=== PATIENT | female | born 1965 | race Caucasian/White ===

== ENCOUNTER 2024-12-23 06:04 | Day surgery (SDC) | payer OTHER, SELFPAY ==
[2024-12-09 10:50] LABS: Hematocrit 39.2 % (37.0-47.0); Hemoglobin 13.3 g/dL (12.0-16.0); Mean Corp Hgb Conc. 33.9 g/dL (33.0-37.0); Mean Corpuscular Hgb 30.3 pg (27.0-31.0); Mean Corpuscular Volume 89.3 fL (81.0-99.0); Mean Platelet Volume 9.4 fL (7.4-10.4); Platelet Count 284 10^3/uL (130-400); Red Blood Cell Count 4.39 10^6/uL (4.20-5.40); Red Cell Dist. Width 12.2 % (11.5-14.5); White Blood Cell Count 5.5 10^3/uL (4.8-10.8)
[2024-12-09 10:57] LABS: INR 1.05
[2024-12-09 10:58] LABS: APTT 31.2 Sec (23.4-35.0)
[2024-12-09 11:12] LABS: ALT (SGPT) 23 U/L (0-35); AST (SGOT) 28 U/L (14-36); Albumin 4.7 g/dl (3.5-5.0); Alkaline Phosphatase 80 U/L (38-126); Blood Urea Nitrogen 15 mg/dl (7-17); Calcium 9.5 mg/dl (8.4-10.2); Carbon Dioxide 30 mmol/L (22-30); Chloride 103 mmol/L (98-107); Glucose 99 mg/dl (70-99); Potassium 4.8 mmol/L (3.5-5.1); Sodium 141 mmol/L (135-145); Total Bilirubin 0.7 mg/dl (0.2-1.3); Total Protein 8.2 g/dl (6.3-8.2); eGFR > 60.00
[2024-12-09 13:54] VITALS: BMI 27.8
[2024-12-23] VITALS (10 sets, daily range): BP systolic 111–132; BP diastolic 63–73; BMI 27.8
[2024-12-23] MEDS: NEURONTIN 300 MG PO (06:30)
[2024-12-23] MEDS: TYLENOL 1000 MG PO (06:30)
[2024-12-23] MEDS: HEPARIN 5000 UNITS SC (06:31)
[2024-12-23] MEDS: NORMOSOL-R/PLASMALYTE-A 1000 IV (06:40)
[2024-12-23] MEDS: DILAUDID 0.25 MG IV ×2 (09:54→10:11)
--- NOTE | 2024-12-23 12:10 | OR.RPT ---
Operative Report
Operative Report
DATE OF OPERATION: December 23, 2024
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
POSTOPERATIVE DIAGNOSIS: Same
SURGEON: Sven Santos M.D.
OPERATION: Resection of the substernal goiter - 66785
ANESTHESIA: GET
ESTIMATED BLOOD LOSS: 50 cc
DRAINS: None
SPECIMEN: total thyroid
FINDINGS: a large multinodular substernal goiter
COMPLICATIONS: None
PROCEDURE:
The patient was taken to the operating room and placed in the usual supine position. After adequate general endotracheal anesthesia was established, the patient�s neck was extended, prepped, and draped in the typical sterile fashion. A 5 cm
transcervical incision was made two fingerbreadths above the sternal notch. The skin incision was made with the #15 blade, which was taken through the skin into the subcutaneous tissue. The underlying platysma muscle was divided, and subplatysmal
flaps were created superiorly to the thyroid cartilage and inferiorly to the sternal notch. Strap muscles were identified and at the midline.
Attention was turned to the patient�s right thyroid lobe. The right thyroid lobe was mobilized medially. During this process, the right middle thyroid vein and inferior thyroid artery were dissected and ligated with Ligasure. There was a substernal
extension, which was delivered out of the mediastinum through the cervical incision. Next, the right superior pole was taken down by dissecting and transecting the superior pole vessels with a Ligasure. The right thyroid lobe was mobilized medially.
During this process, the right recurrent laryngeal nerve was identified and preserved throughout its entire course. The right superior parathyroid gland was identified and preserved. The right thyroid lobe with isthmus was resected off the trachea
and sent to the pathology department.
Attention was turned to the patient�s left thyroid lobe. The left thyroid lobe was mobilized medially. During this process, the left middle thyroid vein and inferior thyroid artery were dissected and ligated with Ligasure. There was a substernal
extension, which was delivered out of the mediastinum through the cervical incision. Next, the left superior pole was taken down by dissecting and transecting the superior pole vessels with a Ligasure. The left thyroid lobe was mobilized medially.
During this process, the left recurrent laryngeal nerve was identified and preserved throughout its entire course. The left superior parathyroid gland was identified and preserved. The left thyroid lobe with isthmus was resected off the trachea and
sent to the pathology department.
After obtaining adequate hemostasis, the strap muscle was approximated with #3-0 Vicryl in a running fashion, and platysma muscles were reapproximated with #3-0 Vicryl in an interrupted fashion, and the skin was approximated with #4-0 Monocryl in a
running subcuticular fashion. Steri-strips and sterile dressings were placed. The patient tolerated the procedure well. The final instrument, needle, and sponge counts were correct.
== END 2024-12-23 12:15 | disposition home or self-care (01) ==
LOC: SDS 06:04
PROVIDERS: ATTENDING PHYSICIAN Surgery; FAMILY PHYSICIAN Internal Medicine
DX: E06.3 Autoimmune thyroiditis (principal); R59.0 Localized enlarged lymph nodes
CPT/HCPCS: 60271; 88307; 36415; 80053; 85027; 85610; 85730; C1776